=== PATIENT | male | born 1950 | race Caucasian/White ===

== ENCOUNTER 2017-05-19 18:51 | Inpatient (IN) | payer OTHER ==
[~2017-05-19] VITALS: Ht 177.8 cm; Wt 90.7 kg
--- NOTE | ~2017-05-19 | OR ---
Unit #: [id number] #: [id number] Patient: KELLEN BROWN [id number] [address] [address] [id number] I MR#: [id number] NAME: KELLEN BROWN. ROOM: 218 Date of Procedure: 05/23/2017 Admission Date: 05/19/2017 Surgeon: Phil Ríos M.D. : 1950 Attending Physician: Vito Rodriguez M.D. Primary Care Physician: Scotty Ritter M.D. OPERATIVE REPORT ATTENDING PHYSICIAN Dr. Vito Rodriguez. PRIMARY CARE PHYSICIAN Scotty Ritter M.D. PREOPERATIVE DIAGNOSIS Anemia of gastrointestinal blood loss. PROCEDURES PERFORMED Colonoscopy and polypectomy. POSTOPERATIVE DIAGNOSES 1. Single sessile polyp a centimeter in size in the mid ascending colon, removed using snare polypectomy. 2. Moderate sigmoid and descending colon diverticulosis. 3. Rest of the examination up to cecum was normal. The quality of the prep was somewhat suboptimal with lot of areas of the right colon obscured by the stool residue. As a result, angiodysplasias and small polyps could have been easily missed during examination; however, no obstructive colon cancer could have been missed. RECOMMENDATIONS The patient can be discharged home from gastrointestinal standpoint. SEDATION USED MAC. DESCRIPTION OF PROCEDURE Following detailed explanation of potential risks and complications of a colonoscopy, namely perforation, bleeding, and complications related to sedation, the patient was brought to GI lab and laid in the left lateral decubitus position. A digital rectal examination was performed, which was normal. Lubricated tip of the Olympus video colonoscope was inserted through the anus and advanced under direct vision. The scope was advanced past rectosigmoid into descending colon. Multiple small to medium-sized diverticula were noted in this area. The scope tip was then navigated all the way up to cecum with visualization of the ileocecal valve and the appendiceal orifice. Preparation was suboptimal with lot of liquid stool residue especially in the right colon that could not be aspirated completely. As a result, small polyps or angiodysplasias could easily have been missed during examination. No obstructing colon cancer could Unit #: [id number] #: [id number] Patient: KELLEN BROWN have been missed however. Successive segments of the colonic mucosa were examined upon withdrawal. A single sessile polyp was noted in the mid ascending colon. This was removed using snare polypectomy. It was about a centimeter in size. It was retrieved and sent for histology. No additional polyps were noted. Other than the left-sided diverticula, no other abnormalities were found. The patient did not have any internal hemorrhoids at the anal verge. The scope was then withdrawn and the patient returned to the recovery area. He tolerated the procedure without any postprocedure complications. Dictated by... Buddy Trujillo/romina TD: 05/30/2017 15:14 JOB #: [id number] OPERATIVE REPORT Page 1 of 1 X Phil Ríos MD X PROCEDURE OPERATIVE NOTE
--- NOTE | ~2017-05-19 | DS ---
Unit #: [id number] #: [id number] Patient: KELLEN BROWN [id number] [address] [place], [place] [address] [id number] I MR#: [id number] NAME: KELLEN BROWN. ROOM: 218 Age: 67 Sex: M Admission Date: 05/19/2017 : 1950 Discharge Date: 05/26/2017 Attending Physician: Vito Rodriguez M.D. Primary Care Physician: Scotty Ritter M.D. DISCHARGE SUMMARY DISCHARGE DIAGNOSES 1. Acute kidney injury. 2. Acute tubular necrosis. 3. Hyponatremia. 4. Hypokalemia. 5. Hypomagnesemia. 6. Metabolic acidosis. 7. Skin tear to right foot. 8. Fall at home. 9. Liver cirrhosis. 10. Urinary retention. 11. Hypophosphatemia. 12. Alcohol dependence. 13. Hepatic encephalopathy. PERTINENT HISTORY AND HOSPITAL COURSE The patient is a 67-year-old man who had a fall at home with a laceration to his right foot. During his admission, the patient had wound care with regular dressing changes. The patient was also noted to have acute renal failure which improved with hydration. The patient was also noted to have urinary retention for which a Becerril catheter was placed. Patient was started on Flomax, following which his urinary retention resolved. The patient also had electrolyte abnormalities, hypomagnesemia, hypokalemia, hypophosphatemia and the patient's electrolytes were replaced. The patient was noted to have anemia and the patient underwent upper GI endoscopy as well as colonoscopy which demonstrated no active bleeding. His hemoglobin was stable at 8.1. The patient also had hepatic encephalopathy with the initial ammonia of 62. This improved to an ammonia of 30 following treatment with lactulose. CONSULTATIONS 1. Nephrology consultation. 2. Gastroenterology consultations. PROCEDURES Upper and lower endoscopy. DISCHARGE MEDICATIONS 1. Flomax 0.4 mg p.o. q.h.s. 2. Lactulose 20 g p.o. daily. 3. Mupirocin ointment applied topically b.i.d. 4. Magnesium oxide 800 mg p.o. b.i.d. 5. Calcium with vitamin D two tablets p.o. b.i.d. Unit #: [id number] #: [id number] Patient: KELLEN BROWN DISCHARGE INSTRUCTIONS 1. Patient is to be discharged home with home health service. 2. Patient to set up with primary care appointment. Dictated by... Buddy Del Real/kathleen TD: 05/28/2017 15:45 JOB #: [id number] DISCHARGE SUMMARY Page 1 of 1 X X DISCHARGE SUMMARY
--- NOTE | ~2017-05-19 | OR ---
Unit #: [id number] #: [id number] Patient: KELLEN BROWN [id number] [address] [place], [place] [address] [id number] I MR#: [id number] NAME: KELLEN BROWN. ROOM: [facility] Date of Procedure: 05/20/2017 Admission Date: 05/19/2017 Surgeon: Phil Ríos M.D. : 1950 Attending Physician: Vito Rodriguez M.D. Primary Care Physician: Scotty Ritter M.D. OPERATIVE REPORT PREOPERATIVE DIAGNOSES Alcoholic liver disease and anemia. PROCEDURES PERFORMED Upper gastrointestinal endoscopy and biopsy. POSTOPERATIVE DIAGNOSES 1. The patient had prepyloric antral erosive gastritis. 2. There was focal patchy erosive duodenitis. 3. Rest of examination up to third part of duodenum was normal. Specifically, there were no changes of esophageal varices nor any changes suggestive of portal hypertensive gastropathy. RECOMMENDATIONS High-protein 2000 calorie diet. SEDATION USED Procedural sedation. DESCRIPTION OF PROCEDURE Following detailed explanation of the potential risks and complications of an upper endoscopy, namely perforation, bleeding, complication related to sedation, the patient was brought to GI lab and laid in the left lateral decubitus position. Lubricated tip of the Olympus video upper endoscope was passed through bite block into the proximal esophagus under direct vision. The entire esophageal mucosa was examined and appeared normal. Z-line was nicely demarcated, there being no esophagitis or hiatus hernia. In addition, no esophageal varices were seen. The scope was then advanced in the gastric cavity and the latter was insufflated. Mucosa of the fundus, body, and antrum was examined. The patient was noted to have prepyloric antral erosive moderate gastritis. Pylorus was intubated with visualization of the duodenal bulb. The latter was noted to have focal patchy erosive duodenitis. Second and third part of duodenum were normal. Upon withdrawal and retroflexion, incisura, cardia, and greater curve examined and biopsy obtained from the antrum for CLOtest. The scope was then withdrawn in the distal esophagus. The entire esophageal mucosa was examined all the way up to pharynx. No additional findings noted. The patient tolerated the procedure without any postprocedure complications. Dictated by... Phil Ríos M.D. Unit #: [id number] #: [id number] Patient: KELLEN BROWN CHANDLER/romina TD: 05/21/2017 06:46 JOB #: [id number] CC: Buddy Rdz M.D. OPERATIVE REPORT Page 1 of 1 X Phil Ríos MD PROCEDURE OPERATIVE NOTE
--- NOTE | ~2017-05-19 | US77 ---
[facility] A Service of [facility] RADIOLOGY TEXT RESULTS PATIENT: KELLEN BROWN LOCATION: [facility] 455 : 51 UNIT #: [id number] AGE: [address]: Bianca Wilde MD SEX: M ORDER DR: [id number] [facility] [address] [place], [place] [address] [id number] I MR#: [id number] Acc #: [id number] NAME: KELLEN BROWN. : 1950 SEX: M STUDY DATE/TIME: 05/20/2017 11:07 UNIT: [facility] ROOM: [facility] STUDY DESCRIPTION: US Kidney Bilateral Complete Attending Physician: Bianca Wilde M.D. Ordering Physician: Robson Cordon M.D. Primary Care Physician: Scotty Ritter M.D. MEDICAL IMAGING REPORT This report is preliminary unless electronic signature is present EXAM Bilateral renal ultrasound. INDICATION Abdominal distension and acute kidney insufficiency. COMPARISON 06/18/2013. FINDINGS The right kidney is about 10.4 cm in length. There appears to be marked hydronephrosis with marked distension of the calyces and renal pelvis. The left kidney is about 10.9 cm in length and also shows marked hydronephrosis. There is a large amount ascites and it is difficult to distinguish the bladder from the ascites. IMPRESSION 1. Marked hydronephrosis in each kidney. 2. Large amount of ascites which makes it difficult to evaluate the bladder. Dictated by... Kavin Jose M.D. THIS IS AN ELECTRONICALLY VERIFIED REPORT Kavin Jose M.D. at 05/20/2017 3:30 PM JOHNIE/nyasia TD: 05/20/2017 14:20 JOB #: [id number] [facility] A Service of [facility] RADIOLOGY TEXT RESULTS PATIENT: KELLEN BROWN LOCATION: [facility] : 52 UNIT #: [id number] AGE: [address]: Bianca Wilde MD SEX: M ORDER DR: MEDICAL IMAGING REPORT Page 1 of 1 COPY
--- NOTE | ~2017-05-19 | HP ---
Unit #: [id number] #: [id number] Patient: KELLEN BROWN [id number] [id number] [facility]. [place], [place] [address] [id number] I MR#: [id number] NAME: KELLEN BROWN. ROOM: 455 Age: 67 Sex: M Admission Date: 05/19/2017 : 1950 Attending Physician: Bianca Wilde M.D. Primary Care Physician: Scotty Ritter M.D. HISTORY AND PHYSICAL CHIEF COMPLAINT Patient fell at home, laceration to right foot, went to [facility]. DISCUSSION This is a 67-year-old gentleman who has a history of cirrhosis, history of alcohol-related peripheral neuropathy, history of hypertension in the past, benign prostatic hypertrophy. He has not been seeing any doctor/physician for 2 years. He has not been taking any medication for around 2 years. He was at home with a friend, and he had a fall with a skin tear to the right foot and was brought to the emergency room. The patient had abnormal labs with sodium of 123, potassium 2.8, CO2 17, BUN 30, creatinine 3.5, magnesium 0.6, bilirubin direct 3.5, ammonia level 62, and eventually he was admitted for cirrhosis, acute kidney injury, hypokalemia and hyponatremia. He denies any other complaints. He denies chest pain, diaphoresis, palpitations, diarrhea, constipation or any other complaint. PAST MEDICAL HISTORY 1. History of cirrhosis. 2. History of alcohol-related peripheral neuropathy. 3. History of hypertension in the past. 4. Left below knee amputation. 5. Alcohol abuse. PAST SURGICAL HISTORY 1. He has a history of left below knee amputation. 2. History of cystoscopy with transurethral incision of bladder neck contracture. 3. History of TURP. 4. Cholecystectomy. 5. Hernia repair. 6. History of bilateral cataract surgery. FAMILY HISTORY Hypertension in the family. SOCIAL HISTORY He said he drinks too much. He drinks 3-4 brandies daily at least. "Denies alcohol." Denies illicit drug use. HOME MEDICATIONS He is currently not taking any medications for more than 2 years. Unit #: [id number] #: [id number] Patient: KELLEN BROWN REVIEW OF SYSTEMS A 12-point review of systems is negative except as in history of present illness. PHYSICAL EXAMINATION GENERAL: Middle-aged man lying in bed comfortably, currently not in any distress. He seems slightly confused but alert, oriented x2. CURRENT VITALS: Temperature 98.4, heart rate 102, respirations 18, blood pressure 135/86, oxygen saturation 100% on room air. HEENT: Sclera is icteric, jaundice positive. Head is atraumatic, normocephalic. Pupils equally reactive to light and accommodation. Dry mucous membranes. NECK: Supple. No JVD. LUNGS: Clear to auscultation. HEART: S1, S2. Regular rate and rhythm. ABDOMEN: Abdomen is soft, nontender, distended. Dull to percussion. Distant bowel sounds. EXTREMITIES: Left below knee amputation. Right lower leg is erythematous, skin tear, thickened skin. Chronic dermatitis changes and also there is a laceration between the third and fourth toe. There is a small cut on the palmar aspect of the right foot. DIAGNOSTIC STUDIES LABORATORY WORKUP: INR is 1.6. Ammonia level 62, bilirubin direct 3.5. Chemistry - Sodium 123, potassium 2.8, chloride 89, glucose 92, BUN 30, creatinine 3.5, magnesium 0.6, phosphorous 3.6, AST 139. Troponin less than 0.05. CBC - White count 13, hemoglobin 10, hematocrit 21, platelets 231, MCV 108. ASSESSMENT AND PLAN 1. Status post fall with skin tear to right foot. 2. Acute kidney injury. 3. Hyponatremia. 4. Hypokalemia. 5. Metabolic acidosis. 6. Cirrhosis/liver failure. 7. Anemia. 8. Ascites. Will do an ultrasound of abdomen. 9. History of alcoholic peripheral neuropathy. 10. History of hypertension, currently not taking any medication. 11. Left below knee amputation. 12. Alcohol abuse. 13. History of benign prostatic hypertrophy, previous TURP. PLAN Plan is to admit to hospital. Will get GI, Dr. Ríos, to see. Nephrology, Dr. Eduardo. Started on lactulose for high ammonia level and replaced magnesium and potassium. IV fluids for hydration and monitor closely. Two-gram sodium diet. Dictated by Robson Cordon M.D. TABITHA/joão TD: 05/20/2017 11:00 Unit #: [id number] #: [id number] Patient: KELLEN BROWN Carlos JOB #: [id number] HISTORY AND PHYSICAL Page 1 of 1 X X HISTORY AND PHYSICAL
--- NOTE | ~2017-05-19 | CO ---
Unit #: [id number] #: [id number] Patient: KELLEN MCKENZIE [id number] [address] [address] [id number] I MR#: [id number] NAME: KELLEN MCKENZIE. ROOM: [facility] Age: 67 Sex: M Admission Date: 05/19/2017 : 1950 Attending Physician: Vito Rodriguez M.D. Primary Care Physician: Scotty Ritter M.D. Consultation Date: 05/20/2017 CONSULTATION REPORT PRIMARY CARE PHYSICIAN Scotty Ritter M.D. REASON FOR CONSULTATION Cirrhosis of liver failure. HISTORY OF PRESENT ILLNESS Mr. Mckenzie is a 67-year-old white gentleman, who lives at home with a male friend. The patient drinks on a regular basis. He apparently fell at home. The patient does have left below-knee amputation and uses a prosthetic leg on that side. He apparently broke a glass and stepped on it and as a result, had lot of bleeding from his feet, which is still blood stain. Upon admission, the patient was found to have massive hepatomegaly along with anasarca as well as acute kidney injury and coagulopathy. PAST MEDICAL HISTORY Significant for history of cirrhosis, alcohol-related peripheral neuropathy, alcohol abuse, history of hypertension, left below-knee amputation. PAST SURGICAL HISTORY Included history of TURP, cholecystectomy, herniorrhaphy, bilateral cataract surgery, cystoscopy and TURP, left below-knee amputation. FAMILY HISTORY Hypertension. SOCIAL HISTORY The patient drinks up to full steven daily. He also denies any recreational drug use. Also does smoke. MEDICATIONS The patient not take any medications in the past couple of years. REVIEW OF SYSTEMS Detailed review of organ systems does not reveal any recent weight loss. No history of fever, chills, or rigors. No history of headache, seizures, chest pain, or syncope. No history of cough, expectoration, or hemoptysis. No history of dysuria, hematuria, or pyuria. No history of overt GI bleed in the form of hematemesis, melena, or hematochezia. No history of skin rash, aphthous ulcers in the mouth, or reactive arthritis. PHYSICAL EXAMINATION Unit #: [id number] #: [id number] Patient: KELLEN MCKENZIE GENERAL: Awake and alert, and appears unshaven and unkempt. VITAL SIGNS: Stable with a temperature of 97.9, pulse is 72 per minute and regular, respiratory rate is 20, and blood pressure is 150/73. He weighs 200 pounds, which is close to his baseline weight. HEENT: He has eaat-td-ihqlyfrv pallor. There being also history of icterus. There is no lymphadenopathy. EXTREMITIES: He has grade 4 peripheral edema in the right lower extremity. Left lower extremity has below-knee amputation. CARDIOVASCULAR: Normal heart sounds. No murmurs. LUNGS: Auscultation over the lungs normal breath sounds. Good air entry. ABDOMEN: Soft with massive hepatomegaly. In fact, the liver extends all the way into the right iliac fossa. It is firm, smooth, nontender. Spleen is not palpable. Bowel sounds normal. No discernible ascites is felt. DIAGNOSTIC STUDIES LABORATORY RESULTS: Shows coagulopathy with an INR of 1.6. BUN and creatinine of 30 and 3.5 indicating acute kidney injury, potassium of 2.8 hypokalemia. He has icterus, the patient has jaundice with bilirubin of 6.6. AST and ALT are 139 and 32 respectively indicating alcoholic hepatitis. His hemoglobin is 7.9, baseline hemoglobin is 13; white count is 13,000; and platelet count is 231. The patient has macrocytosis. CLINICAL IMPRESSION The patient has history of falls, blood loss after stepping in the glass. No overt gastrointestinal bleed. Left below-knee amputation. Massive hepatomegaly, anasarca, ethanol abuse, acute kidney injury, alcoholic hepatitis, cirrhosis, coagulopathy, macrocytic anemia, and social issues. An upper endoscopy is being scheduled shortly. In the meantime, we will monitor his hemoglobin and hematocrit. Thank you very much for asking me to see this pleasant gentleman. I appreciate the consult. Dictated by... Buddy Trujillo/romina TD: 05/21/2017 12:50 JOB #: [id number] Robson Corodn M.D. CONSULTATION REPORT Page 1 of 1 X Phil Ríos MD X CONSULTATION REPORT
--- NOTE | ~2017-05-19 | CO ---
Unit #: [id number] #: [id number] Patient: KELLEN BROWN [id number] [address] [place], [place] [address] [id number] I MR#: [id number] NAME: KELLEN BROWN. ROOM: 455 Age: 67 Sex: M Admission Date: 05/19/2017 : 1950 Attending Physician: Vito Rodriguez Primary Care Physician: Scotty Ritter M.D. CONSULTATION REPORT REASON FOR CONSULTATION Elevated BUN and creatinine, decreased sodium and potassium, metabolic acidosis, decreased magnesium. Actually, the patient was brought in because he had a laceration on his foot following a fall. HISTORY OF PRESENTING ILLNESS This patient is a 67-year-old white male with a history of alcohol abuse, currently active everyday user. The patient has a history of cirrhosis of liver due to alcohol abuse. He also had a history of BPH, status post TURP. The patient has not gone to any medical-clinical follow up for 2 years and stopped taking all medicines. He actually fell at home and was brought into the emergency room because he was bleeding from his foot. The patient had a skin breakdown there. Bleeding was stopped. The patient was found to have abnormal labs. He was admitted. He had a hemoglobin of 7.9. His creatinine was 3.5, potassium 2.8, sodium 123, and magnesium of 0.9. The patient's baseline creatinine is not known. The patient had ultrasound of the kidneys, which showed bilateral hydronephrosis, most likely from the bladder and has mild dilatation of the collecting system, indicating etiology of acute renal failure secondary to bilateral hydronephrosis and outlet obstruction. The patient denied any other complaints. PAST MEDICAL HISTORY As per history of presenting illness. He has a history of cirrhosis of liver, continued to drink despite of having problem; history of left tkmwf-psw-qkhu amputation due to infected wound; peripheral neuropathy from alcohol abuse; status post TURP; hernia repair; and cataract surgery. FAMILY HISTORY Noncontributory. MEDICATIONS The patient was taking no medicines. ALLERGIES He has no known allergies. PHYSICAL EXAMINATION GENERAL: He looks icteric and pale. VITAL SIGNS: Temperature 98, pulse 99, and blood pressure 125/75. HEENT: Dry mucosa. No oral exudate. Positive pallor and icterus. NECK: Supple. No JVD. CHEST: Clear to auscultation bilaterally. CARDIOVASCULAR: Regular rate and rhythm. No rub, murmur, or gallop. Unit #: [id number] #: [id number] Patient: KELLEN BROWN ABDOMEN: Soft. Positive bowel sounds. Positive fluid thrill with ascites. EXTREMITIES: Positive +1 to +2 pitting edema on the lower extremities. DIAGNOSTIC STUDIES IMAGING STUDIES: Renal ultrasound with bilateral hydronephrosis. LABORATORY RESULTS: Urine pH 5.5, negative protein or active sediments. Chemistry; sodium 128, potassium 3.2, chloride 92, bicarb 20, BUN 31, creatinine 3.6, glucose 94, calcium 6.3, and magnesium 0.9. White cell count 11.8, hemoglobin 7.9, hematocrit 22.6, and platelets 61. ASSESSMENT The patient with acute kidney injury with decompensated cirrhosis of liver. The patient also has bilateral hydronephrosis. We will place the Becerril catheter and decompress the urinary system. We will start the patient on Flomax. Monitor electrolytes per postoperative diuresis. We will monitor renal function as well. We will replace magnesium and calcium. We will start the patient on vitamin D supplement. Thank you very much and we will follow along with you. Dictated by... Buddy Mccollum/romina TD: 05/21/2017 21:47 JOB #: [id number] CONSULTATION REPORT Page 1 of 1 X Link Bray MD X CONSULTATION REPORT
--- NOTE | ~2017-05-19 | US8 ---
[facility] A Service of [facility] RADIOLOGY TEXT RESULTS PATIENT: KELLEN BROWN LOCATION: [place] [address] : [birth year] UNIT #: [id number] AGE: [address]: SYEDA DEE V SEX: M ORDER DR: [id number] [facility] [address] [place], [place] [address] [id number] I MR#: [id number] Acc #: [id number] NAME: KELLEN BROWN. : 1950 SEX: M STUDY DATE/TIME: 05/20/2017 11:21 UNIT: C4B ROOM: [facility] STUDY DESCRIPTION: US Abdominal Wall/Quadrant Attending Physician: Bianca Wilde M.D. Ordering Physician: Robson Cordon M.D. Primary Care Physician: Scotty Rittre M.D. MEDICAL IMAGING REPORT This report is preliminary unless electronic signature is present EXAM Screening abdominal ultrasound HISTORY Worsening abdominal distension FINDINGS There is moderate distension of the urinary bladder, but there is no more than trace ascites. IMPRESSION Distension of the urinary bladder but trace, if any, ascites. Dictated by... Rickey Jorge M.D. THIS IS AN ELECTRONICALLY VERIFIED REPORT Rickey Jorge M.D. at 05/24/2017 5:03 PM JUANCHO/dion TD: 05/20/2017 15:04 JOB #: [id number] MEDICAL IMAGING REPORT Page 1 of 1 COPY
[~2017-05-19 18:51] MED LIST: BUSPAR15 M1 PO; BUSPIRONE HCL7.5 MG PO; CELEXA PO; CELEXA20 MG PO; CIPRO250 M1 PO; DESYREL100 MG PO; FLOMAX0.4 M1 PO; GLUCOSAMINE HC500 MG PO; KEFZOL2 GM IV; LOPRESSOR PO; LORTAB 7.5-5001 TAB PO; METOPROLOL SUC100 MG PO; METOPROLOL TAR25 MG PO; METOPROLOL TART25 MG PO; MOBIC15 MG PO; PERCOCET 10/3251 TAB PO; PERCOCET7.5 PO; SPIRONOLACTONE50 MG PO; TRAZADONE PO; TRAZODONE HCL100 MG PO
[2017-05-19 19:28] LABS: BASOPHIL# 0.1 X10e3 (0-0.3); BASOPHIL% 0.5 % (0-2.5); DIFF IND NO; EOSINOPHIL# 0.1 X10e3 (0-0.7); EOSINOPHIL% 0.4 % (0.0-7.0); HEMATOCRIT 29.1 % (38.0-50.0); LYMPHOCYTE# 0.5 X10e3 (1.0-3.5); LYMPHOCYTE% 3.9 % (17.0-45.0); MEAN CELL VOLUME 108.2 FL (83-96); MEAN CORPUSCULAR HEMOGLOBIN 37.2 PG (28-34); MEAN CORPUSCULAR HGB CONC 34.4 g/dL (30-36); MEAN PLATELET VOLUME 9.2 FL (6.5-11.5); MONOCYTE# 0.9 X10e3 (0-1.0); MONOCYTE% 6.6 % (3.0-12.0); NEUTROPHIL% 88.6 % (40-75); PLATELET COUNT 231 X10e3 (140-420); RED BLOOD COUNT 2.69 X10e (3.90-5.60); RED CELL DISTRIBUTION WIDTH 19.7 % (11.0-15.5); WHITE BLOOD COUNT 13.6 X10e3 (4.0-10.5)
[2017-05-19 19:33] LABS: POC - CKMB 3.7 ng/mL (0.0-7.9); POC - MYOGLOBIN >500.0 ng/mL (0.0-169.0); POC - TROPONIN <0.05 ng/mL (<=0.05)
[2017-05-19 19:41] LABS: ALBUMIN SERUM 3.3 g/dL (3.5-5.0); ALKALINE PHOSPHATASE 103 U/L (32-92); ALT (SGPT) 32 U/L (10-40); AST (SGOT) 139 U/L (10-42); BILIRUBIN,TOTAL 6.6 mg/dL (0.2-2.0); BLOOD UREA NITROGEN 30 mg/dL (9-23); BUN/CREATININE RATIO 8.57; CALCIUM SERUM 6.3 mg/dL (8.4-10.2); CARBON DIOXIDE 17 mmol/L (22-31); CHLORIDE 89 mmol/L (100-111); CREATININE SERUM 3.5 mg/dL (0.6-1.4); GLOM FILT RATE Estimated 17.2 mL/min (>60); GLUCOSE FASTING 92 mg/dL (70-110); PHOSPHOROUS 3.6 mg/dL (2.5-4.6); PROTEIN TOTAL SERUM 8.1 g/dL (6.0-8.3)
[2017-05-19 19:48] LABS: POTASSIUM 2.8 mmol/L (3.5-5.1); SODIUM 123 mmol/L (135-145)
[2017-05-19 19:49] LABS: ALCOHOL BLOOD <5 mg/dL (0); MAGNESIUM 0.6 mg/dL (1.6-3.0)
[2017-05-19 20:38] LABS: INR 1.6; PROTHROMBIN TIME (PATIENT) 17.6 SECONDS (9.5-12.4)
[2017-05-19 20:46] LABS: PARTIAL THROMBOPLASTIN TIME 32.3 SECONDS (25.6-38.1)
[2017-05-20 03:21] LABS: BASOPHIL# 0.1 X10e3 (0-0.3); BASOPHIL% 0.8 % (0-2.5); EOSINOPHIL# 0.2 X10e3 (0-0.7); EOSINOPHIL% 1.4 % (0.0-7.0); HEMATOCRIT 22.6 % (38.0-50.0); LYMPHOCYTE% 8.8 % (17.0-45.0); MEAN CELL VOLUME 108.1 FL (83-96); MEAN CORPUSCULAR HEMOGLOBIN 37.9 PG (28-34); MEAN CORPUSCULAR HGB CONC 35.1 g/dL (30-36); MONOCYTE# 1.4 X10e3 (0-1.0); NEUTROPHIL# 9.1 X10e3 (1.5-7.1); PLATELET COUNT 161 X10e3 (140-420); RED BLOOD COUNT 2.09 X10e (3.90-5.60); RED CELL DISTRIBUTION WIDTH 19.4 % (11.0-15.5); WHITE BLOOD COUNT 11.8 X10e3 (4.0-10.5)
[2017-05-20 03:32] LABS: HEMOGLOBIN 7.9 gm/dL (13.0-16.0)
[2017-05-20 03:33] LABS: DIFF IND YES
[2017-05-20 03:50] LABS: ALBUMIN SERUM 2.7 g/dL (3.5-5.0); BILIRUBIN,TOTAL 6.1 mg/dL (0.2-2.0); BUN/CREATININE RATIO 8.61; CALCIUM SERUM 6.2 mg/dL (8.4-10.2); CREATININE SERUM 3.6 mg/dL (0.6-1.4); GLOM FILT RATE Estimated 16.6 mL/min (>60); POTASSIUM 3.2 mmol/L (3.5-5.1); PROTEIN TOTAL SERUM 6.5 g/dL (6.0-8.3)
[2017-05-20 03:54] LABS: MAGNESIUM 0.9 mg/dL (1.6-3.0)
[2017-05-20 04:07] LABS: FOLATE (FOLIC ACID) 6.2 ng/mL (>5.8)
[2017-05-20 04:15] LABS: HYPOCHROMIA MOD; PLATELET ESTIMATE NORMAL (NORMAL); ROULEAUX SLIGHT
[2017-05-20 05:45] LABS: URINE APPEARANCE CLEAR; URINE BLOOD NEG (NEG); URINE COLOR DK YELLOW; URINE GLUCOSE NEG (NEG); URINE KETONE NEG (NEG); URINE LEUKOCYTE ESTERASE 1+ (NEG); URINE NITRATE POS (NEG); URINE PH 5.5 (5-8); URINE PROTEIN NEG (NEG); URINE SPECIFIC GRAVITY 1.009 (1.003-1.035)
[2017-05-20 05:46] LABS: U HYALINE CASTS AUWI 0-2 /[LPF]; URINE BACTERIA AUWI NEG (NEGATIVE); URINE SQUAMOUS EPITHELIAL CELL NONE SEEN /[HPF]; UWBCS1 AUWI 0-2 (0-5)
[2017-05-20 05:47] LABS: AMPHETAMINE POS (NEG); BARBITURATES NEG (NEG); BENZODIAZEPINES POS (NEG); COCAINE POS (NEG); MARIJUANA NEG (NEG); OPIATES NEG (NEG); TRICYCLIC ANTIDEPRESSANTS NEG (NEG); U METHADONE NEG (NEG)
[2017-05-20 05:59] LABS: CULTURE INDICATED? NO; URINE BILIRUBIN NEG (NEG)
[2017-05-20 06:00] LABS: URBCS1 AUWI 0-2 /[HPF] (0-2)
[2017-05-20 19:24] LABS: CREATININE,RANDOM URINE 143 mg/dL
[2017-05-20 19:25] LABS: SODIUM URINE RANDOM <10 mmol/L
[2017-05-21 04:19] LABS: BASOPHIL# 0.2 X10e3 (0-0.3); BASOPHIL% 4.6 % (0-2.5); EOSINOPHIL# 0.1 X10e3 (0-0.7); EOSINOPHIL% 3.6 % (0.0-7.0); HEMATOCRIT 21.9 % (38.0-50.0); HEMOGLOBIN 7.7 gm/dL (13.0-16.0); LYMPHOCYTE# 0.6 X10e3 (1.0-3.5); LYMPHOCYTE% 14.1 % (17.0-45.0); MEAN CELL VOLUME 108.3 FL (83-96); MEAN CORPUSCULAR HEMOGLOBIN 38.2 PG (28-34); MEAN CORPUSCULAR HGB CONC 35.3 g/dL (30-36); MONOCYTE# 0.5 X10e3 (0-1.0); MONOCYTE% 12.7 % (3.0-12.0); NEUTROPHIL# 2.7 X10e3 (1.5-7.1); PLATELET COUNT 112 X10e3 (140-420); RED BLOOD COUNT 2.03 X10e (3.90-5.60); RED CELL DISTRIBUTION WIDTH 19.7 % (11.0-15.5)
[2017-05-21 04:20] LABS: DIFF IND NO; WHITE BLOOD COUNT 4.1 X10e3 (4.0-10.5)
[2017-05-21 04:41] LABS: BUN/CREATININE RATIO 14.7; CALCIUM SERUM 6.2 mg/dL (8.4-10.2); CREATININE SERUM 1.7 mg/dL (0.6-1.4); GLOM FILT RATE Estimated 41.1 mL/min (>60); PHOSPHOROUS 1.2 mg/dL (2.5-4.6)
[2017-05-21 04:52] LABS: POTASSIUM 2.6 mmol/L (3.5-5.1)
[2017-05-22 03:41] LABS: BASOPHIL# 0.1 X10e3 (0-0.3); EOSINOPHIL# 0.1 X10e3 (0-0.7); EOSINOPHIL% 1.9 % (0.0-7.0); HEMOGLOBIN 8.1 gm/dL (13.0-16.0); LYMPHOCYTE# 0.5 X10e3 (1.0-3.5); LYMPHOCYTE% 9.1 % (17.0-45.0); MEAN CELL VOLUME 110.6 FL (83-96); MEAN CORPUSCULAR HEMOGLOBIN 38.9 PG (28-34); MEAN CORPUSCULAR HGB CONC 35.2 g/dL (30-36); MEAN PLATELET VOLUME 8.7 FL (6.5-11.5); MONOCYTE# 0.8 X10e3 (0-1.0); MONOCYTE% 14.6 % (3.0-12.0); NEUTROPHIL# 4.2 X10e3 (1.5-7.1); NEUTROPHIL% 72.4 % (40-75); PLATELET COUNT 133 X10e3 (140-420); RED BLOOD COUNT 2.08 X10e (3.90-5.60); RED CELL DISTRIBUTION WIDTH 19.3 % (11.0-15.5); WHITE BLOOD COUNT 5.8 X10e3 (4.0-10.5)
[2017-05-22 03:42] LABS: DIFF IND NO
[2017-05-22 03:56] LABS: ALBUMIN SERUM 2.4 g/dL (3.5-5.0); BILIRUBIN,TOTAL 2.8 mg/dL (0.2-2.0); BUN/CREATININE RATIO 12.72; CALCIUM SERUM 6.8 mg/dL (8.4-10.2); CREATININE SERUM 1.1 mg/dL (0.6-1.4); GLOM FILT RATE Estimated 69.6 mL/min (>60); MAGNESIUM 1.4 mg/dL (1.6-3.0); POTASSIUM 3.1 mmol/L (3.5-5.1); PROTEIN TOTAL SERUM 6.2 g/dL (6.0-8.3)
[2017-05-23 08:21] LABS: HEMATOCRIT 23.4 % (38.0-50.0); HEMOGLOBIN 8.1 gm/dL (13.0-16.0); MEAN CELL VOLUME 110.9 FL (83-96); MEAN CORPUSCULAR HEMOGLOBIN 38.5 PG (28-34); MEAN CORPUSCULAR HGB CONC 34.7 g/dL (30-36); MEAN PLATELET VOLUME 8.6 FL (6.5-11.5); RED BLOOD COUNT 2.11 X10e (3.90-5.60); RED CELL DISTRIBUTION WIDTH 19.4 % (11.0-15.5); WHITE BLOOD COUNT 5.8 X10e3 (4.0-10.5)
[2017-05-23 08:38] LABS: BUN/CREATININE RATIO 8.88; CALCIUM SERUM 7.4 mg/dL (8.4-10.2); CREATININE SERUM 0.9 mg/dL (0.6-1.4); GLOM FILT RATE Estimated 88.7 mL/min (>60); MAGNESIUM 1.1 mg/dL (1.6-3.0); PHOSPHOROUS 1.2 mg/dL (2.5-4.6); POTASSIUM 3.8 mmol/L (3.5-5.1)
[2017-05-24 08:00] LABS: BUN/CREATININE RATIO 8.75; CALCIUM SERUM 7.8 mg/dL (8.4-10.2); CREATININE SERUM 0.8 mg/dL (0.6-1.4); GLOM FILT RATE Estimated 93.1 mL/min (>60); MAGNESIUM 1.2 mg/dL (1.6-3.0); PHOSPHOROUS 1.8 mg/dL (2.5-4.6); POTASSIUM 4.1 mmol/L (3.5-5.1)
[2017-05-25 06:52] LABS: BUN/CREATININE RATIO 8.75; CALCIUM SERUM 8.2 mg/dL (8.4-10.2); CREATININE SERUM 0.8 mg/dL (0.6-1.4); GLOM FILT RATE Estimated 93.1 mL/min (>60); MAGNESIUM 1.1 mg/dL (1.6-3.0); POTASSIUM 4.4 mmol/L (3.5-5.1)
[2017-05-26] MEDS ORDERED: LACTULOSE20 GM/30 M PO (10:39)
[2017-05-26] MEDS ORDERED: FLOMAX0.4 M1 PO (10:39)
[2017-05-26] MEDS ORDERED: MAGNESIUM400 M1 PO (10:41)
[2017-05-26] MEDS ORDERED: MUPIROCIN15 GM TOP (10:42)
[2017-05-26] MEDS ORDERED: CALCIUM 500 +1 EAC5 PO (10:44)
[2017-05-26] MEDS ORDERED: MULTIVITAMINS1 EAC4 PO (10:44)
== END 2017-05-26 14:20 | disposition home health service (06) | DRG 683 ==
LOC: SED 18:51 → SEDOF 20:37 → C4B 22:37 → SEDOF 22:37 → C4B 22:45 → SEDOF 22:45 → C4B 05-20 06:37 → C2A 05-22 20:15
PROVIDERS: Emergency Medicine; Family Medicine; Internal Medicine; Internal Medicine Gastroenterology; Internal Medicine Nephrology; Nurse Practitioner
PROC: 0DB68ZX Excision of Stomach, Via Natural or Artificial Opening Endoscopic, Diagnostic (ICD-10-PCS; principal; 2017-05-20 07:04)
PROC: 30233N1 Transfusion of Nonautologous Red Blood Cells into Peripheral Vein, Percutaneous Approach (ICD-10-PCS; 2017-05-22)
PROC: 0DBK8ZX Excision of Ascending Colon, Via Natural or Artificial Opening Endoscopic, Diagnostic (ICD-10-PCS; 2017-05-24)
DX: N17.0 Acute kidney failure with tubular necrosis (principal); E87.1 Hypo-osmolality and hyponatremia; E87.2 Acidosis; K70.31 Alcoholic cirrhosis of liver with ascites; K70.11 Alcoholic hepatitis with ascites; N39.0 Urinary tract infection, site not specified; G62.1 Alcoholic polyneuropathy; I10 Essential (primary) hypertension; N40.0 Benign prostatic hyperplasia without lower urinary tract symptoms; Z89.512 Acquired absence of left leg below knee; Z90.49 Acquired absence of other specified parts of digestive tract; E87.6 Hypokalemia; S91.311D Laceration without foreign body, right foot, subsequent encounter; D64.9 Anemia, unspecified; W18.30XA Fall on same level, unspecified, initial encounter; N13.30 Unspecified hydronephrosis; K29.50 Unspecified chronic gastritis without bleeding; K29.80 Duodenitis without bleeding; K70.40 Alcoholic hepatic failure without coma; E83.42 Hypomagnesemia; K63.5 Polyp of colon; K57.90 Diverticulosis of intestine, part unspecified, without perforation or abscess without bleeding; R33.9 Retention of urine, unspecified; Y90.0 Blood alcohol level of less than 20 mg/100 ml; F10.20 Alcohol dependence, uncomplicated; E83.39 Other disorders of phosphorus metabolism
CPT/HCPCS: 36415; 76705; 76770; 80048; 80053; 80307; 81003; 82140; 82248; 82553; 82570; 82607; 82746; 83540; 83550; 83735; 83874; 84100; 84132; 84300; 84439; 84443; 84484; 85025; 85027; 85610; 85730; 86592; 87077; 88305; 89190; 96374; 97110; 97161; 97165; 97530; 97535; 99285; G0480; G8978-GP; G8979-GP; G8987-GO; G8988-GO; J0610; J2250; J3010; J3411; J3475; J7042